=== PATIENT | male | born 1960 | race Caucasian/White ===

== ENCOUNTER 2025-02-12 04:34 | Emergency (ER) | payer OTHER, SELFPAY ==
[2025-02-12] VITALS (8 sets, daily range): BP systolic 104–128; BP diastolic 72–82; BMI 20.5
[2025-02-12 05:16] LABS: % Eosinophils 6.4 % (0-6); % Immature Granulocytes 0.3 % (0-0.5); % Monocytes 8.4 % (1.7-9.3); % Neutrophils 51.9 % (42.2-75.2); Absolute Basophils 0.1 10^3/uL (0-0.2); Absolute Eosinophils 0.5 10^3/uL (0-0.7); Absolute Lymphocytes 2.3 10^3/uL (1.2-3.4); Absolute Monocytes 0.6 10^3/uL (0.1-0.6); Absolute Neutrophils 3.7 10^3/uL (1.4-6.5); Hematocrit 37.8 % (39.0-52.0); Hemoglobin 12.9 g/dL (13.0-18.0); Mean Corp Hgb Conc. 34.1 g/dL (33.0-37.0); Mean Corpuscular Hgb 30.6 pg (27.0-31.0); Mean Corpuscular Volume 89.8 fL (80.0-94.0); Mean Platelet Volume 9.7 fL (7.4-10.4); Nucleated Red Blood Cells % 0 % (-); Platelet Count 225 10^3/uL (130-400); Red Blood Cell Count 4.21 10^6/uL (4.70-6.10); Red Cell Dist. Width 12.6 % (11.5-14.5)
[2025-02-12 05:29] LABS: Lactic Acid 0.6 mmol/L (0.7-2.0)
[2025-02-12 05:30] LABS: ALT (SGPT) 40 U/L (0-50); AST (SGOT) 39 U/L (17-59); Alkaline Phosphatase 62 U/L (38-126); Blood Urea Nitrogen 15 mg/dl (9-20); Calcium 9.2 mg/dl (8.4-10.2); Carbon Dioxide 25 mmol/L (22-30); Chloride 108 mmol/L (98-107); Glucose 106 mg/dl (70-99); Lipase 147 U/L (23-300); Potassium 4.6 mmol/L (3.5-5.1); Sodium 140 mmol/L (135-145); Total Bilirubin 0.4 mg/dl (0.2-1.3); eGFR > 60.00
[2025-02-12 06:11] LABS: Urine Albumin Negative (Neg - Trace); Urine Bilirubin Negative (Negative); Urine Character Clear (Clear); Urine Color Yellow; Urine Glucose Negative (Negative); Urine Ketone Negative (Negative); Urine Leukocyte Negative (Negative); Urine Nitrite Negative (Negative); Urine Occult Blood Negative (Negative); Urine Urobilinogen Negative (Neg - 1+)
--- NOTE | 2025-02-12 06:13 | ED.GENMED ---
History of Present Illness
General
Chief Complaint: Abdominal Pain
Source: patient
Exam Limitations: none
Time Seen by Provider: 02/12/25 06:06
Nursing documentation reviewed up to this point in time: agreed with
History of Present Illness
History of Present Illness:
64-year-old male presents emergency room complaining of right lower quadrant abdominal pain that began this morning. He is visiting from [facility]. He has had an umbilical hernia repair and bilateral inguinal hernia repairs. It hurts when he
laughs.
Past History
Past History
ED Past Medical History: Asthma
ED Past Surgical History: Other (Umbilical hernia repair, bilateral inguinal hernia repair)
Social History
Tobacco: Non-smoker
Alcohol: None
Drug: None
Living: alone
Review of Systems
Review of Systems
Allergies reviewed?: Yes
All Other Systems: Not applicable
Constitutional: Reports no symptoms; Denies fever
EENT: Reports no symptoms
Respiratory: Reports no symptoms
Cardiac: Reports no symptoms
ABD/GI: Reports abdominal pain and nausea; Denies vomiting
: Reports no symptoms
Musculoskeletal: Reports no symptoms
Skin: Reports no symptoms
Neurological: Reports no symptoms
Endocrine: Reports no symptoms
Hematologic/Lymphatic: Reports no symptoms
Psychiatric: Reports no symptoms
Phy Exam
Physical Exam
Physical Exam:
Physical Exam
General: no apparent distress, not acutely ill
Neck: supple. no meningeal signs. normal posterior pharynx
Heart: s1/s2 regular rate and rhythm, no murmur. equal radial
pulses.
HEENT: Pupils equal round reactive to light, EOMI
Lungs: no acute respiratory distress. clear bilaterally
Abdomen: normal bowel sounds. Right lower quadrant tenderness, no rebound or guarding. No CVAT
Neuro: alert and oriented. no focal neurological deficits cranial nerves II through XII intact
Skin: no rash
Psychiatric: well kept. interactive and cooperative
Extremities: no edema. good distal pulses
Course
Orders/Labs/Results
Orders:
Orders
02/12/25 04:56
IV Insert/Care/Rem.- Treatment PRN
02/12/25 05:08
Complete Blood Count/With Diff Urgent
Comprehensive Metabolic Panel Urgent
Lipase Urgent
02/12/25 05:10
Lactic Acid Urgent
02/12/25 05:58
Urinalysis Reflex To Culture Urgent
Date Specimen was Collected: 02/12/25
Time Specimen was Collected: 04:57
02/12/25 06:13
CT Abd/pel W Iv And Oral Contr Urgent
Comment:
Reason For Exam: RLQ abd pain since this am
Iohexol [Omnipaque] See Protocol PO NOW STA
02/12/25 09:53
Magnesium Citrate [Citroma] 300 ml PO ONCE ONE
Abnormal Lab Results
02/12/25 02/12/25
05:08 05:10
RBC 4.21 L 10^6/uL
(4.70-6.10)
Hgb 12.9 L g/dL
(13.0-18.0)
Hct 37.8 L %
(39.0-52.0)
Eosinophils % 6.4 H %
(0-6)
Chloride 108 H mmol/L
(98-107)
Glucose 106 H mg/dl
(70-99)
Lactic Acid 0.6 L mmol/L
(0.7-2.0)
02/12/25 05:08
02/12/25 05:08
Vital Signs
Initial and Last Documented VS:
Initial Vital Signs
Temp Pulse Resp BP Pulse Ox
98.0 F 85 18 104/81 98
02/12/25 04:42 02/12/25 04:42 02/12/25 04:42 02/12/25 04:42 02/12/25 04:42
Last Documented Vital Signs
Temp Pulse Resp BP Pulse Ox
97.7 F 57 15 126/74 99
02/12/25 07:21 02/12/25 09:31 02/12/25 09:31 02/12/25 09:31 02/12/25 09:31
MDM/Problems Addressed
Differential Diagnosis Includes:
Appendicitis, kidney stone
MDM/Problems Addressed:
62-year-old male with right lower quadrant pain and constipation. CT abdomen pelvis no acute findings except constipation. Stable for discharge. Magnesium citrate given.
*Radiology
Radiology exam reviewed: radiology read reviewed (CT abdomen pelvis shows constipation, no other acute findings)
*Pulse Oximetry
Patient hypoxic: no
*Critical Care Note
Total Time (30-74mins, 75-104mins- exclusive of procedures): Not Applicable
Patient Management
Social determinants of health affecting care: Living situation and Strong social support
Escalation/DeEscalation of care consider admission/obs:
Admit not indicated
ED Attending Note
-
Portions of this chart may have been created with voice recognition software.� Occasional wrong word or��sound alike� substitutions may have occurred due to the inherent limitations of voice recognition software.
Discharge Plan
Departure
Patient Disposition: Home (Routine Discharge)
Date of Disposition: 02/12/25
Time of Disposition: 09:54
Patient with high blood pressure during this ER visit?: No
Condition: Good
Discharge Problem:
Abdominal pain, Acute constipation
Instructions: Constipation, Adult (DC), Abdominal Pain
Prescriptions:
No Action
multivitamin Capsule
1 cap PO DAILY
[place] 3 Capsule
1 cap PO DAILY
Referrals:
UNKNOWN - PT DOES,NOT KNOW [Family Provider] -
Activity Restrictions/Additional Instructions:
Follow-up with your primary care. Return for any concerns.
Interventions
Interventions:
*Risk Screen - Suicide Last Done: 02/12/25 05:36
*General Assessment Last Done: 02/12/25 05:36
*Neglect/Abuse Screening Last Done: 02/12/25 05:36
*ED- Fall Risk Assessment Last Done: 02/12/25 05:36
*ED COVID-19 Vaccine History Last Done: 02/12/25 05:36
*Nursing Disposition Last Done: 02/12/25 10:15
[facility]-Mvmmbt-[id number] Assessment Last Done: 02/12/25 05:21
Discharge Date and Time
Discharge Date/Time: 02/12/25 10:15
Print Language: BENGALI
[2025-02-12] MEDS: OMNIPAQUE 50 ML PO (06:42)
[2025-02-12] MEDS: CITROMA 300 ML PO (10:08)
== END 2025-02-12 10:15 | disposition home or self-care (01) ==
LOC: EMR 04:34
PROVIDERS: Emergency Medicine; EMERGENCY PHYSICIAN Emergency Medicine
DX: K59.09 Other constipation (principal); J45.909 Unspecified asthma, uncomplicated
CPT/HCPCS: 99284; 74177; 80053; 81003; 83605; 83690; 85025; Q9967